=== PATIENT | female | born 1980 | race Caucasian/White ===

== ENCOUNTER 2017-12-31 18:00 | Outpatient (CLI) | payer BC | END 2017-12-31 18:01 | disposition home or self-care (01) | LOC: SLEEPLAB 18:00 | PROVIDERS: ATTEND Family Medicine | DX: G47.33 Obstructive sleep apnea (adult) (pediatric) (principal); G31.84 Mild cognitive impairment of uncertain or unknown etiology; R51 Headache; E66.9 Obesity, unspecified; R06.83 Snoring | CPT/HCPCS: 95806 ==

== ENCOUNTER 2018-03-12 20:30 | Outpatient (CLI) | payer BC | END 2018-03-12 20:31 | disposition home or self-care (01) | LOC: SLEEPLAB 20:30 | PROVIDERS: ATTEND Family Medicine | DX: G47.33 Obstructive sleep apnea (adult) (pediatric) (principal); R51 Headache; G31.84 Mild cognitive impairment of uncertain or unknown etiology; G47.00 Insomnia, unspecified; G47.10 Hypersomnia, unspecified; R06.83 Snoring; E66.9 Obesity, unspecified; Z68.39 Body mass index [BMI] 39.0-39.9, adult | CPT/HCPCS: 95811 ==

== ENCOUNTER 2021-01-12 10:14 | Outpatient (CLI) | payer BC | END 2021-01-12 10:15 | disposition home or self-care (01) | LOC: DTY/OP 10:14 | PROVIDERS: ATTEND Internal Medicine | DX: R73.03 Prediabetes (principal); R53.83 Other fatigue; E04.1 Nontoxic single thyroid nodule; F17.200 Nicotine dependence, unspecified, uncomplicated; E07.9 Disorder of thyroid, unspecified | CPT/HCPCS: 97802 ==

== ENCOUNTER 2021-01-17 13:37 | Outpatient (CLI) | payer BC ==
[2021-01-18 02:11] LABS: SARS-CoV-2 PCR by NAA Not Detected (NotDetected)
== END 2021-01-17 13:38 | disposition home or self-care (01) ==
LOC: LABBT 13:37
PROVIDERS: ATTEND Specialist
DX: Z01.812 Encounter for preprocedural laboratory examination (principal); Z20.822 Contact with and (suspected) exposure to COVID-19; E04.1 Nontoxic single thyroid nodule; R13.10 Dysphagia, unspecified
CPT/HCPCS: 85014; 87635; U0003; U0005

== ENCOUNTER 2021-01-20 06:30 | Day surgery (SDC) | payer BC ==
[2021-01-19 11:17] VITALS: BMI 44.6
[2021-01-20] MEDS ORDERED: Lidocaine 1% w/Epinephrine 1:100K 20 ML VIAL ONE (06:46)
[2021-01-20] MEDS ORDERED: Bacitracin Zinc Ointment 30 gm TUBE ONE (06:46)
[2021-01-20] MEDS ORDERED: Fentanyl 100 MCG/2 ML VIAL ONE ×2 (07:18→11:00)
[2021-01-20] MEDS ORDERED: Dexmedetomidine 200 MCG/2 ML VIAL ONE (07:18)
[2021-01-20] MEDS ORDERED: Midazolam HCl 2 mg/2 ml Vial ONE (07:55)
[2021-01-20] MEDS ORDERED: Ondansetron PF 4 MG/2 ML Vial ONE (08:14)
[2021-01-20] MEDS ORDERED: Succinylcholine 200 MG/10 ml SYRINGE FS ONE (08:14)
[2021-01-20] MEDS ORDERED: Ketorolac Tromethamine 30 MG/ML VIAL ONE (08:14)
[2021-01-20] MEDS ORDERED: PROPOFOL 200 MG/20 ML VIAL ONE (08:14)
[2021-01-20] MEDS ORDERED: Lidocaine 1% PF 5 ML VIAL ONE (08:14)
[2021-01-20] MEDS ORDERED: Dexamethasone 20 MG/5 ML VIAL ONE (08:14)
[2021-01-20] MEDS ORDERED: HYDROcodone/Acetaminophen 5/325 mg Tablet ONE (12:19)
== END 2021-01-20 14:00 | disposition home or self-care (01) ==
LOC: SDC 06:30
PROVIDERS: ATTEND Specialist
PROC: 0GTH0ZZ Resection of Right Thyroid Gland Lobe, Open Approach (ICD-10-PCS; principal; 2021-01-20)
DX: E04.2 Nontoxic multinodular goiter (principal); M26.601 Right temporomandibular joint disorder, unspecified; F17.210 Nicotine dependence, cigarettes, uncomplicated; H92.01 Otalgia, right ear; G89.29 Other chronic pain; M54.9 Dorsalgia, unspecified; G43.909 Migraine, unspecified, not intractable, without status migrainosus; E66.9 Obesity, unspecified; Z68.41 Body mass index [BMI] 40.0-44.9, adult; Z79.899 Other long term (current) drug therapy; Z88.0 Allergy status to penicillin; Z88.5 Allergy status to narcotic agent; Z88.8 Allergy status to other drugs, medicaments and biological substances
CPT/HCPCS: 88307; J1100; J1885; J2250; J2405; J2704; J3010

== ENCOUNTER 2023-03-15 11:46 | Outpatient (CLI) | payer BC | END 2023-03-15 11:47 | disposition home or self-care (01) | LOC: CT 11:46 | PROVIDERS: ATTEND Nurse Practitioner Family | DX: R10.11 Right upper quadrant pain (principal); R10.32 Left lower quadrant pain; R10.825 Periumbilic rebound abdominal tenderness; K76.0 Fatty (change of) liver, not elsewhere classified; R16.0 Hepatomegaly, not elsewhere classified; Z90.710 Acquired absence of both cervix and uterus | CPT/HCPCS: 74178 ==

== ENCOUNTER 2023-03-16 14:15 | Outpatient (CLI) | payer BC | END 2023-03-16 14:16 | disposition home or self-care (01) | LOC: ULT 14:15 | PROVIDERS: ATTEND Nurse Practitioner Family | DX: K82.9 Disease of gallbladder, unspecified (principal); K76.0 Fatty (change of) liver, not elsewhere classified | CPT/HCPCS: 76705 ==